=== PATIENT | male | born 1990 | race Caucasian/White ===

== ENCOUNTER → 2016-08-27 | Outpatient (CLI) | payer OTHER ==
--- NOTE | 2016-08-27 16:09 | PAP/PSG TECHNICIAN REPORT ---
[facility] Prototyper Polysomnogram Report Study name: None Report date: 08/27/2016 Study date: 08/27/2016 Referring Physician: DR. Sue WILLSON Name: JORDI JIN Interpreting Physician: Tyrone Olivas D.O. Date of : 1990 Prototyper: Erika Molina RPS. Sex: Male Age: 26 StudyType: PSG Weight: 155 lbs Height: 26 years, Height 5' 11" Neck Circum: 15 in BMI: 21.62 Medications: Albuterol, Fluoxetine, OTC allergy medicine Patient History Patient has a history of sleeping for 10-12 hours at a time and still not feeling rested. He started working 3rd shift and he has noticed that it has gotten a little worse. 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 He stated that he remembers always feeling tired even when he was younger and in school. He does have asthma and his girlfriend has noted some snoring and occasional breath holding during sleep. Patient stated that he usually falls right to sleep and doesn't wake for anything, except to use his inhaler or restroom. He also stated that he has started sleeping in a recliner and feels he breathes better in recliner. He does feel that this is due to his asthma. [place] Scale is 11. Neck circumference is 15 in. Parameters Monitored NPSG: E1-M2, E2-M1, Fp1-M2, Fp2-M1, F3-M2, F4-M2, F4-M1, C3-M2, C4-M2, C4-M1, O1-M2, O2-M2, O2-M1, T3-M2, T4-M1, P3-M2, P4-M1, CHIN1, CHIN2, HR, EKG, Legs, PFLOW, SNOR, FLOW, CFLOW, Tidal Volume, THOR, ABDO, SpO2, PLTH, CPRESS, ETCO2 Wave, ETCO2, pH Sleep Architecture Sleep Stages Time at Lights Off 8:22:10 AM STAGES Time (min.) TST (%) Time at Lights On 3:41:10 PM Wake 27.5 -- Total Recording Time (TRT) 439.50 min. N1 24.5 6 Total Sleep Period (TSP) 429.0 min. N2 230.5 56 Total Sleep Time (TST) 411.5min. N3 69.0 17 Awake Time 27.5 min. REM 87.5 21 Wake after Sleep Onset 17.5 min. Sleep Efficiency (SE) 94 % Sleep Onset Latency (BASHIR) 10.0 min. Number of Stage 1 Shifts None Awakenings 17 Stage Changes 87 Number of REM periods 3 REM 87.5 21 REM Latency 152.0 min. NREM 324.0 79 Body Position Analysis Supine Right Left Side Prone Vertical Total Sleep Time (min.) 337.8 0.0 88.9 88.92 0.0 0.0 Total Sleep Time (%) 78% 0% 22% 22 0% N/A% Total Sleep Time REM (min.) 56.0 0.0 31.5 None 0.0 0.0 Total Sleep Time NREM (min.) 266.6 0.0 57.4 None 0.0 0.0 Intermittent Wake (min.) 15.2 0.0 12.3 None 0.0 0.0 Total Sleep Period (%) 78% None None None None None Arousals Myoclonus (PLM) * Events Count Index Events Count Index Spontaneous 30 4 Events Awake (PLMW) 0 0.0 Respiratory 0 0.0 Events Asleep w/ Arousal (PLMA) 11 1.6 PLM 11 2 Events Asleep w/o Arousal (PLMS) 157 22.9 Snoring 5 1 Total Asleep 168 24.5 Total 46 7 Total 168 23 Respiratory Analysis * CA OA MA CH H RERA Total Count 0 0 0 0 3 0 4 Index 0.0 0.0 0.0 0 0.4 0 0.6 Mean Duration 0.0 0.0 0.0 6.71 11.9 0.0 10.6 Longest Duration 0.0 0.0 0.0 6.71 0.0 0.0 16.4 Respiratory Event Summary Total Supine ~Supine Right Left Prone REM NREM Apneas Count 0 0 0 N/A 0 N/A 0 0 Index 0.0 0 0 N/A 0.0 N/A 0 0 Hypopneas (4% Desat) Count 3 1 2 N/A 2 N/A 1 2 Index 0.4 0.2 1 N/A 1.3 N/A 0.7 0.4 Apneas & All Hypopneas Count 4 1 3 N/A 3 N/A 2 2 Index 0.6 0 2 N/A 2 N/A 1.4 0.4 Respiratory Events ([employer] Technician+All Hyp+RERA) Count 4 1 3 N/A 3 N/A 2 2 Index 0.6 0 2 N/A 2.0 N/A 1.4 0.4 Respiratory Related Arousal Count 0 1 0 N/A 0 N/A 0 0 Index 0.0 0 0 N/A 0 N/A 0 0 Snoring Analysis Supine Right Left Prone REM NREM Total Snore duration 6.4 min Snores count 330 N/A 16 N/A 108 238 346 Snore mean duration 1.1 Sec Snores index 61 N/A 11 N/A 74.1 44.1 50.4 TST with snoring (%) 1.6% Desaturation Event Summary: Minimum %SpO2 Event Count Mean/Min/Max Duration(sec.) Desaturation Index % Time In Bed > 90 5 21.5 / 4.3 / 51.5 0.7 100.0 86 - 90 0 N/A 0.0 0.0 81 - 85 0 N/A 0.0 0.0 76 - 80 0 N/A 0.0 0.0 71 - 75 0 N/A 0.0 0.0 66 - 70 0 N/A 0.0 0.0 61 - 65 0 N/A 0.0 0.0 56 - 60 0 N/A 0.0 0.0 51 - 55 0 N/A 0.0 0.0 < 50 0 N/A 0.0 0.0 Total REM NREM Awake <50% 0.0 min. 0.0 min. 0.0 min. 0.0 min. 51 - 60% 0.0 min. 0.0 min. 0.0 min. 0.0 min. 61 - 70% 0.0 min. 0.0 min. 0.0 min. 0.0 min. 71 - 80% 0.0 min. 0.0 min. 0.0 min. 0.0 min. 81 - 90% 0.2 min. 0.0 min. 0.2 min. 0.0 min. 91 - 100% 436.6 min. 87.4 min. 322.1 min. 27.0 min. Average 94 94 94 96 Minimum SpO2 90 92 90 91 Desaturation Event Index 0.7 0.7 0.7 0.0 # Desat. Events below 89% N/A N/A N/A N/A Time(%) with Saturation below 89% 0.0 0.0 0.0 0.0 Time(min.) with Saturation below 89% 0.0 0.0 0.0 0.0 Time (mins) REM (mins) NREM (mins) % of TST SpO2 Below 90% N/A N/A NN/A 0.0 SpO2 Below 88% 0 0 0 0 Heart Rate Analysis Min (bpm) Max (bpm) Average (bpm) Awake 46 106 77 NREM 48 96 64 REM 50 83 66 Overall 48 96 64 Supplemental O2 Values Minimum O2 level: None Value Start Time End Time Prototyper Comments Mr. Jin slept in the left and supine positions. No cardiac arrhythmia was noted. Some leg movements were seen. No bruxism noted. Snoring was noted as a 0-1 on a scale of 1 through 5 (0=no snoring, 5=snoring loud enough to be heard through a closed door or down the hallway). He did not awaken to use the restroom. It did take patient about 30 minutes to actually fall asleep, but once asleep, he slept very well. Patient did seem to have some arousals for no apparent reason. He stated that he slept about the same as usual, maybe a little better. He woke up like usual due to needing his inhaler. The final report will be interpreted and signed by a sleep physician. The completed physician report will then be placed in the patient medical record. Therapy (cm H2O) 0 TIB (min.) 439.0 TST (min.) 411.5 Sleep Onset (min.) 10.0 REM Onset From Sleep (min.) 152.0 Sleep Efficiency % 94 Wakefulness (%) 6 Wakefulness (min.) 27.5 NREM 1 (%) 6 NREM 1 (min.) 24.5 NREM 2 (%) 56 NREM 2 (min.) 230.5 NREM 3 (%) 17 NREM 3 (min.) 69.0 REM (%) 21 REM (min.) 87.5 # Arousals 46 Arousal Index 7 # Snore 346 Snore Index 50.4 AHI 0.6 AHI Supine 0 AHI Non-Supine 2 NREM AHI 0.4 REM AHI 1.4 RDI 0.6 # Obstructive Apnea 0 # Central Apnea 0 # Mixed Apnea 0 # Hypopneas 3 RERAs 0 Total Respiratory Events 4 Time Below SpO2 89% (min.) 0.0 Mean NREM SpO2 (%) 94 Mean REM SpO2 (%) 94 Mean Sleep SpO2 (%) 94 Min NREM SpO2 (%) 90 Min REM SpO2 (%) 92 Position Supine (min.) 337.8 Position Non-supine (min.) 88.9 LM Index Sleep 24.5 LM Index NREM 11.7 LM Index REM 72.0 Mean Heart Rate (bpm) 64 Min Heart Rate (bpm) 48
--- NOTE | 2016-08-29 17:55 | POLYSOMNOGRAPH REPORT ---
SLEEP STUDY REPORT REFERRING PHYSICIAN: Dr. Lupe Arciniega. CLINICAL DATA: The patient is a 26-year-old male. He has a BMI of 21.62. He has complaints of fatigue and daytime sleepiness. He has had some snoring and his girlfriend notices that he occasionally holds his breath during sleep. The [place] sleepiness scale score is 11. This study was an in-lab diagnostic polysomnography. SLEEP ARCHITECTURE: The total sleep period was 429.0 minutes. Total sleep time was 411.5 minutes. Sleep efficiency was normal at 94%. The sleep latency was 10 minutes. The REM latency was modestly prolonged to 152 minutes. Wake after sleep onset was 17.5 minutes. Sleep consisted of stage N1 6%, stage N2 56%, stage N3 17%, stage REM 21%. AROUSAL DATA: The patient had a total of 46 arousals including 30 spontaneous arousals, 11 PLM arousals, and 5 snoring arousals. PERIODIC LIMB MOVEMENTS DATA: The patient had a total of 168 periodic limb movements for an index of 24.5. Eleven of these were associated with arousals for a PLM arousal index of only 1.6. ELECTROCARDIOGRAM: The cardiac rates ranged from 48-96 beats per minute. The average heart rate was 64 beats per minute. No arrhythmias were noted. RESPIRATORY DATA: The patient had a total of 4 respiratory events, all hypopneas. These were scored by the 4% desaturation rule. The apnea hypopnea index was normal at 0.6 events per hour. This would suggest no significant sleep apnea. OXIMETRY DATA: The average saturation was 94%. The minimum saturation was 90%. [employer] SERVICE SUPERVISOR COMMENTS: The patient slept in the left and supine positions. No cardiac arrhythmia was noted. Some leg movements were seen. No bruxism noted. Snoring was noted as a 0-1 on a scale of 1 through 5. The patient reportedly woke up like usual needing his inhaler. He has a history of asthma. IMPRESSION: 1. Periodic limb movement disorder. COMMENTS: This patient had near normal sleep architecture. There was no sleep apnea. The only abnormality was that of increased periodic limb movements. He did not have any significant arousals related to this and thus it seems unlikely the leg movements would be resulting in fatigue. The patient does have a history of asthma. Apparently, he wakes up fairly regularly with shortness of breath and needs to use his inhaler. The asthma may be disrupting his sleep somewhat but not as much as one might expect considering his symptom complex. The patient does take fluoxetine. This could suggest a history of anxiety or depression. It is uncertain what role that problem may play in his symptom complex. He obviously is not a candidate for treatment of sleep apnea in light of the fact he has no significant sleep apnea. RECOMMENDATIONS: 1. The patient should be advised of the principles of sleep hygiene including having a fairly regular sleep-wake schedule and allowing approximately 8 hours of sleep time. 2. Consideration could be given to having the patient fill out sleep logs for 2 weeks to determine if there might be any hygiene or other issues contributing to his daytime somnolence. 3. The patient reportedly is working third shift, which may have worsened his symptoms. However, he apparently was having symptoms prior to a third shift job. Clinical correlation is advised to determine if he does have a true shift work disorder, but it would seem that that is less likely. 4. Further follow up is deferred to Dr. Suze WESTBROOK
== END | disposition home or self-care (01) ==
LOC: C.NEUR 07:30
PROVIDERS: ATTEND Internal Medicine
DX: R53.83 Other fatigue (principal); J45.30 Mild persistent asthma, uncomplicated; R06.02 Shortness of breath; G47.61 Periodic limb movement disorder